=== PATIENT | female | born 2000 | race Caucasian/White ===

== ENCOUNTER 2024-03-01 22:44 | Emergency (ER) | payer OTHER, MEDICAID, SELFPAY ==
[2024-03-01 22:59] VITALS: BP 125/63; PULSE 83; RESP 16; TEMP 36.9; O2SAT 97; BMI 25.7
[2024-03-01 23:26] LABS: Add Manual Diff / Slide Review NO; Basophils Absolute Auto 0 /uL (0-100); Basophils Percent Auto 0.5 % (0-2); Eosinophils Absolute Auto 200 /uL (0-450); Eosinophils Percent Auto 2.2 % (2-4); Hematocrit 40.5 % (36-46); Hemoglobin 13.7 g/dL (12.0-16.0); Lymphocytes Absolute Auto 2700 /uL (1100-4500); Lymphocytes Percent Auto 32.4 % (25-40); Mean Corpuscular HGB Conc 33.8 % (30-36); Mean Corpuscular Hemoglobin 30.5 PG (26-34); Mean Corpuscular Volume 90.2 fL (80-100); Monocytes Absolute Auto 500 /uL (0-900); Monocytes Percent Auto 6.4 % (3-14); Neutrophils Absolute Auto 4900 /uL (1500-7000); Neutrophils Percent Auto 58.5 % (50-75); Platelet Count 328 X10^3/uL (150-400); Red Blood Cell Count 4.49 X10^6/uL (4.0-5.2); Red Cell Distribution Width 13.4 % (11.6-14.8); White Blood Cell Count 8.3 X10^3/uL (4.5-11.0)
[2024-03-01 23:37] LABS: Acetaminophen < 10 ug/mL (10-30); Alanine Aminotransferase 13 IU/L (<35); Albumin 4.7 g/dL (3.5-5.0); Albumin Globulin Ratio 1.7 (1.0-2.8); Alkaline Phosphatase 62 U/L (38-126); Aspartate Aminotransferase 20 IU/L (14-36); BUN Creatinine Ratio 19.3 (6-22); Bilirubin Total 0.4 mg/dL (0.2-1.3); Blood Urea Nitrogen 11 mg/dL (7-17); Calcium 8.8 mg/dL (8.4-10.2); Carbon Dioxide 27 mmol/L (22-32); Chloride 105 mmol/L (98-107); Estimated Glomerular Filt Rate > 60 mL/min (>60); Ethanol (ETOH) < 10 mg/dL; Globulin 2.8 g/dL (1.7-4.1); Glucose 106 mg/dL (70-100); HEMOLYSIS < 15 (0-50); Potassium 3.9 mmol/L (3.4-5.1); Salicylate < 1.0 mg/dL (<20); Sodium 141 mmol/L (137-145); Total Protein 7.5 g/dL (6.3-8.2)
[2024-03-01 23:57] LABS: Free T4, Direct Thyroxine 0.77 ng/dL (0.78-2.19)
[2024-03-02 00:05] LABS: UR Morphine/Opiate cutoff 300 Negative (Negative); Ur Creatinine Normal (Normal); Ur Specific Gravity Normal (Normal); Urine Amphetamines Negative (Negative); Urine Barbiturates Negative (Negative); Urine Benzodiazepines Negative (Negative); Urine Cocaine Negative (Negative); Urine MDMA Negative (Negative); Urine Methadone Negative (Negative); Urine Methamphetamines Negative (Negative); Urine Oxycodone Negative (Negative); Urine Phencyclidine Negative (Negative); Urine Tetrahydrocannabinol Positive (Negative); Urine Tricyclic Antidepressant Negative (Negative); Urine pH Normal (Normal)
[2024-03-02 00:11] LABS: Thyroid Stimulating Hormone 0.842 uIU/mL (0.47-4.68)
--- NOTE | 2024-03-02 01:07 | ED.PSYCH ---
HPI - Psych General Chief Complaint: Psychiatric Symptoms Stated Complaint: side effects of meds Time Seen by Provider: 03/01/24 23:48 Source: patient Mode of arrival: Ambulatory History of Present Illness HPI Narrative: 23-year-old female reports longstanding depression for many years, in the past had been on oral medications for depression prescribed by her primary care doctor Nhi at [facility], she stopped taking anti-depression medication months ago, can not recall the name of the medication. She does not believe she has any established diagnosis of bipolar disorder or any other psychiatric disorders. She has never been an inpatient for psychiatric issues before. She has had recent worsening of depression symptoms, with thoughts of hurting herself. No specific plan. She does admit to having a gun in the household, has not thought about hurting herself with a firearm. She denies ingestion of pills medications. She does not admit to any recent particular stressors with relationship, work, school. She would like to seek help. Related Data Home Medications Medication Instructions Recorded Confirmed OMEPRAZOLE 20 mg PO QDAY ##0 12/06/10 Allergies Allergy/AdvReac Type Severity Reaction Status Date / Time No Known Drug Allergies Allergy Verified 03/01/24 23:00 Review of Systems Review of Systems Narrative: see HPI Patient History Social History Smoking Status: Current every day smoker Smoking Status: Current every day smoker alcohol intake frequency: a few times a month Substance Use Type: marijuana Exam Narrative Exam Narrative: GENERAL: Well-developed patient, in mild distress. Clear speech, cooperative, good eye contact, no alcohol on breath HEAD: Atraumatic. Normocephalic. EYES: Pupils equal round and reactive. Extraocular motions intact. No scleral icterus. No injection or drainage. ENT: Nose without bleeding, purulent drainage. Throat without erythema, tonsillar hypertrophy or exudate. Airway patent. NECK: Trachea midline. Non tender CARDIOVASCULAR: Regular rate and rhythm without murmurs, gallops, or rubs. RESPIRATORY: Clear to auscultation. Breath sounds equal bilaterally. No wheezes, rales, or rhonchi. GASTROINTESTINAL: Abdomen soft, non-tender, nondistended. EXTREMITIES: No edema or joint tenderness. No injuries or punctures, no old scars upper extremities or lower extremities BACK: Nontender without deformity or crepitance. No flank tenderness. NEURO: AOx3. Grossly nonfocal neuro exam. SKIN: No rash or erythema of visible areas Initial Vital Signs Initial Vital Signs: Vital Signs Temperature 98.4 F 03/01/24 22:59 Pulse Rate 83 03/01/24 22:59 Respiratory Rate 16 03/01/24 22:59 Blood Pressure 125/63 03/01/24 22:59 Pulse Oximetry 97 03/01/24 22:59 Oxygen Delivery Method Room Air 03/01/24 22:59 Course Orders Ordered: Discontinued Medications Acetaminophen (Acetaminophen 325 Mg Tablet) 650 mg PO NOW ONE Stop: 03/02/24 07:02 Last Admin: 03/02/24 07:12 Dose: 650 mg Documented By: AB Vital Signs Vital signs: Vital Signs - 8 hr 03/02/24 08:30 03/02/24 13:40 Pulse Rate 75 107 H Respiratory Rate 16 12 Blood Pressure 107/61 110/66 Pulse Oximetry 100 99 Oxygen Delivery Method Room Air Room Air MDM - Psych Lab Data Attestation: I reviewed the patient's lab results. 03/01/24 23:17 03/01/24 23:17 Labs: Lab Results 03/01/24 03/01/24 03/01/24 Range/Units 01:40 23:17 23:20 WBC 8.3 (4.5-11.0) X10^3/uL RBC 4.49 (4.0-5.2) X10^6/uL Hgb 13.7 (12.0-16.0) g/dL Hct 40.5 (36-46) % MCV 90.2 (80-100) fL MCH 30.5 (26-34) PG MCHC 33.8 (30-36) % RDW 13.4 (11.6-14.8) % Plt Count 328 (150-400) X10^3/uL Neut % (Auto) 58.5 (50-75) % Lymph % (Auto) 32.4 (25-40) % [place] % (Auto) 6.4 (3-14) % Eos % (Auto) 2.2 (2-4) % Baso % (Auto) 0.5 (0-2) % Neut # (Auto) 4900 (3140-5616) /uL Lymph # (Auto) 2700 (2134-7593) /uL [place] # (Auto) 500 (0-900) /uL Eos # (Auto) 200 (0-450) /uL Baso # (Auto) 0 (0-100) /uL Sodium 141 (137-145) mmol/L Potassium 3.9 (3.4-5.1) mmol/L Chloride 105 (98-107) mmol/L Carbon Dioxide 27 (22-32) mmol/L BUN 11 (7-17) mg/dL Creatinine 0.57 (0.52-1.04) mg/dL Estimated GFR > 60 (>60) mL/min BUN/Creatinine Ratio 19.3 (6-22) Glucose 106 H (70-100) mg/dL Calcium 8.8 (8.4-10.2) mg/dL Total Bilirubin 0.4 (0.2-1.3) mg/dL AST 20 (14-36) IU/L ALT 13 (<35) IU/L Alkaline Phosphatase 62 (38-126) U/L Total Protein 7.5 (6.3-8.2) g/dL Albumin 4.7 (3.5-5.0) g/dL Globulin 2.8 (1.7-4.1) g/dL Albumin/Globulin Ratio 1.7 (1.0-2.8) TSH 0.842 (0.47-4.68) uIU/mL Free T4 0.77 L (0.78-2.19) ng/dL Urine Color Urine Appearance Ur Specific [place] (1.000-1.035) Urine Protein (Negative) Urine Glucose (UA) (Negative) g/dL Urine Ketones (NEGATIVE) Urine Occult Blood (Negative) Urine Nitrate (Negative) Urine Bilirubin (NEGATIVE) Urine Urobilinogen (0.2) E.U./dL Ur Leukocyte Esterase (NEGATIVE) Urine RBC (0-5/HPF) Urine WBC (0-5/HPF) Ur Squamous Epith Cells (0-5/HPF) Urine Bacteria (None) Ur Culture Indicated? Vol Urine Centrifuged Urine Test Negative (Negative) Salicylates < 1.0 (<20) mg/dL U Opiates 300ng/mL cut Negative (Negative) Ur Oxycodone Screen Negative (Negative) Urine Methadone Screen Negative (Negative) Acetaminophen < 10 (10-30) ug/mL Ur Barbiturates Screen Negative (Negative) U Tricyclic Antidepress Negative (Negative) Ur Phencyclidine Scrn Negative (Negative) Ur Amphetamines Screen Negative (Negative) U Methamphetamines Scrn Negative (Negative) Ur MDMA Scrn (Ecstasy) Negative (Negative) U Benzodiazepines Scrn Negative (Negative) Urine Cocaine Screen Negative (Negative) U Marijuana (THC) Screen Positive H (Negative) Urine pH Normal (Normal) Urine Specific [place] Normal (Normal) Ethyl Alcohol < 10 ( - 10) mg/dL Ur Creatinine Normal (Normal) SARS-CoV-2 (PCR) (Negative) 03/02/24 03/02/24 Range/Units 01:40 11:36 WBC (4.5-11.0) X10^3/uL RBC (4.0-5.2) X10^6/uL Hgb (12.0-16.0) g/dL Hct (36-46) % MCV (80-100) fL MCH (26-34) PG MCHC (30-36) % RDW (11.6-14.8) % Plt Count (150-400) X10^3/uL Neut % (Auto) (50-75) % Lymph % (Auto) (25-40) % [place] % (Auto) (3-14) % Eos % (Auto) (2-4) % Baso % (Auto) (0-2) % Neut # (Auto) (9617-6848) /uL Lymph # (Auto) (2182-9691) /uL [place] # (Auto) (0-900) /uL Eos # (Auto) (0-450) /uL Baso # (Auto) (0-100) /uL Sodium (137-145) mmol/L Potassium (3.4-5.1) mmol/L Chloride (98-107) mmol/L Carbon Dioxide (22-32) mmol/L BUN (7-17) mg/dL Creatinine (0.52-1.04) mg/dL Estimated GFR (>60) mL/min BUN/Creatinine Ratio (6-22) Glucose (70-100) mg/dL Calcium (8.4-10.2) mg/dL Total Bilirubin (0.2-1.3) mg/dL AST (14-36) IU/L ALT (<35) IU/L Alkaline Phosphatase (38-126) U/L Total Protein (6.3-8.2) g/dL Albumin (3.5-5.0) g/dL Globulin (1.7-4.1) g/dL Albumin/Globulin Ratio (1.0-2.8) TSH (0.47-4.68) uIU/mL Free T4 (0.78-2.19) ng/dL Urine Color Yellow Urine Appearance Clear Ur Specific [place] 1.015 (1.000-1.035) Urine Protein Negative (Negative) Urine Glucose (UA) Negative (Negative) g/dL Urine Ketones Negative (NEGATIVE) Urine Occult Blood Negative (Negative) Urine Nitrate Positive H (Negative) Urine Bilirubin Negative (NEGATIVE) Urine Urobilinogen 1.0 (0.2) E.U./dL Ur Leukocyte Esterase Negative (NEGATIVE) Urine RBC None seen (0-5/HPF) Urine WBC 1-5/hpf (0-5/HPF) Ur Squamous Epith Cells 5-10 /hpf H (0-5/HPF) Urine Bacteria Many (>30) H (None) Ur Culture Indicated? Specimen cultured Vol Urine Centrifuged 10ml (spun) Urine Test (Negative) Salicylates (<20) mg/dL U Opiates 300ng/mL cut (Negative) Ur Oxycodone Screen (Negative) Urine Methadone Screen (Negative) Acetaminophen (10-30) ug/mL Ur Barbiturates Screen (Negative) U Tricyclic Antidepress (Negative) Ur Phencyclidine Scrn (Negative) Ur Amphetamines Screen (Negative) U Methamphetamines Scrn (Negative) Ur MDMA Scrn (Ecstasy) (Negative) U Benzodiazepines Scrn (Negative) Urine Cocaine Screen (Negative) U Marijuana (THC) Screen (Negative) Urine pH 8.0 (Normal) Urine Specific [place] (Normal) Ethyl Alcohol ( - 10) mg/dL Ur Creatinine (Normal) SARS-CoV-2 (PCR) Negative (Negative) Point of Care Testing Test Results Negative Urine Dip Bedside Urine Glucose Negative Bedside Urine Bilirubin - Negative Bedside Urine Ketone - Negative Urine Specific [place] 1.015 Bedside Urine Occult Blood - Negative Bedside Urine pH 7.5 Bedside Urine Protein - Negative Bedside Urine Urobilinogen - Negative Bedside Urine Nitrite + Positive Bedside Urine Leukocytes - Negative Esterase MDM Narrative Medical decision making narrative: 23-year-old female with longstanding depression, off medication for many months, recent increase depression symptoms, suicidal ideation without specific plan, no homicidal ideation. Afebrile, sirs screen negative. No obvious injury on exam. Does not seem altered or intoxicated. Urine test negative. Other screening studies unremarkable. support services rep consult when available later this morning. Medically cleared. [id number] [id number] social worker clinical consult for disposition plan, signed out to oncoming ED shift physician Dr. Dominguez Discharge Plan Departure Patient Disposition: Xfer Psychiatric Hosp Clinical Impression: Suicidal ideation, Depression Prescriptions: No Action OMEPRAZOLE 20 mg PO QDAY Qty: 0
[2024-03-02 02:29] LABS: Appearance Urine UA CLEAR; Bilirubin Urine UA NEGATIVE (NEGATIVE); Color Urine UA YELLOW; Glucose Urine UA NEGATIVE (Negative); Ketones Urine UA NEGATIVE (NEGATIVE); Leukocyte Esterase Urine UA NEGATIVE (NEGATIVE); Nitrite Urine UA POSITIVE (Negative); Occult Blood Urine UA NEGATIVE (Negative); Protein Urine UA NEGATIVE (Negative); Specific Gravity Urine UA 1.015 (1.000-1.035)
[2024-03-02 02:31] LABS: RBC Urine None Seen (0-5/HPF); Urine Volume 10mL (spun)
[2024-03-02 02:32] LABS: Bacteria Urine Many (>30); Culture Indicated Urine Specimen Cultured; Squamous Epithelial Cell Urine 5-10 /HPF (0-5/HPF); WBC Urine 1-5/HPF (0-5/HPF)
[2024-03-02] MEDS: ACETAMINOPHEN 325 MG TABLET 650 MG PO (07:12)
[2024-03-02 08:30] VITALS: BP 107/61; PULSE 75; RESP 16; O2SAT 100
--- NOTE | 2024-03-02 11:25 | CM.SWNOTE ---
ED NEUROPSYCHOLOGIST Assessment Note: NEUROPSYCHOLOGIST - Electrical Service Technician Assessment NEUROPSYCHOLOGIST - Electrical Service Technician Assessment Start: 03/02/24 11:00 Freq: Status: Active Protocol: Document 03/02/24 11:00 MW (Rec: 03/02/24 11:20 MW [id number]) NEUROPSYCHOLOGIST/Electrical Service Technician Assessment Time Spent with Patient Start date 03/02/24 Visit Start Time 10:38 End date 03/02/24 Visit End Time 11:01 Total time Care Management spent on 23 minutes patient visit-in minutes Mental Health Screening Include Onset, Duration, Intensity Presenting Problem Patient presents to ED today for psych eval and medical clearance for inpatient treatment, voluntarily. Patient reports passive suicidal ideation and severe depression. Patient scored a 21 on the PHQ -9 and a 14 on the ERASTO-7, indicating severe depression and moderate anxiety. Precipitating Event(s) Patient explains she stopped taking her medications ( lexapro and buspirone) approximately two weeks ago at the recommendation of her PCP due to increased suicidal ideation. Patient is not medicated at the moment. Patient Strengths Patient is exhibiting good insight and is seeking assistance with her medications for depression. Current Behavioral Health Provider(s) PCP: LARRY Coleman Include Facility, Provider, Ph. # Patient does not have a MH provider established at this time. Psych. Hx Mental Health and Chemical Patient has a previous medical Dependency history of depression. Patient expressed suspicions that she has undiagnosed ADHD and Autism Spectrum Disorder. 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 Patient reports she has been clean from these substances for a few months. Patient utilizes THC occasionally. Patient's UTox screening was positive for THC only. Family Hx of Behavioral Abuse Patient explains her father and brother had severe depression, her grandmother has bipolar disorder and her mother had undiagnosed ADHD. Patient explains she has many family members or people in her neighborhood who use substances which could be triggering to her. Psychiatric Hospitalizations (date(s)/ Patient denies any psychiatric location) hospitalizations. Psychosocial information & Support Patient is a 23yo female, Systems resident of [place] with her grandparents. Patient explains she has good support in her grandparents but there are other people around her house that utilize substances which could be triggering for her. School/Work Patient does not work or go to school. Legal Concerns Legal Matters - Outstanding Issues None reported. Mental Status Orientation (Person/Place/Time) AOx3 Stated Mood I feel really stupid. I feel like my brain is not working right now, or at all recently. I feel hopeless. Affect (Congruent with Mood?) Tearful, pleasant, congruent with mood. Thought Content - Specify/Describe Visual hallucinations: Patient Obsessions, Delusions, Hallucinations endorses seeing skulls on the wall predominantly when she was using methamphetamines . Patient explains she sees pictures in patterns currently but nothing insidious or scary. Auditory hallucinations: None reported. Thought Processes (Eflftne-Uuhsrrxb-Iwon Logical, coherent Mdtwwiua-Npxfbyjj-Uwmclynnxu- Albiemyhdyyeot-Kiuuihq-Mrujklygspzt- Thought Blocking) Speech (Zulyei-Bign-Ygkvktz-Rapid-Soft- Soft, normal Loud-Pressured) Motor (Uwylzc-Plsbiujsr-Qfgw-Other) Normal Insight (Bpqn-Kifh-Marb/Limited) Good Judgement (Pzyv-Vxmu-Fqns/Limited) Fair/limited Impulse Control (Adequate-Impaired) Adequate Memory (Lafisncca-Tjgfvi-Qgreeh, Intact Impaired-Intact) Concentration (Intact-Impaired) Intact Attention (Intact-Impaired) Intact Behavior (Appropriate-Inappropriate) Appropriate Additional Comment Patient is calm, cooperative and communicative during assessment and time spent in the ED. Risk Assessment Suicidal Ideation (Plan) Yes Homicidal Ideation (Plan) No Comment Patient denies HI but reports feeling very angry towards people who have been rude to her (a friend) and having inclinations to hit them. Patient confirmed that being aggressive is against her nature and she would not follow through with assaulting anyone. Patient endorses passive SI, I have intrusive thoughts and I run through scenarios sometimes. I try to stop the thoughts because I don't want to do that. Patient explains she has no intent of ending her life and no means. Patient reports her grandmother owns a gun but she does not know where it is stored in the house and would not utilize a firearm to end her life. Patient expresses her passive SI comes from being overwhelmed and hopeless. Intervention Intervention NEUROPSYCHOLOGIST meets with patient. Patient discusses the events that led up to her presentation today; patient reports she stopped taking her medications for depression about a couple of weeks ago due to increased suicide ideations. Patient expresses she does not wish to end her life but is feeling severe depression and hopelessness. NEUROPSYCHOLOGIST deployed PHQ-9 and ERASTO-7, patient scored 21 and 14, respectively. These scores indicating severe depression and moderate anxiety. NEUROPSYCHOLOGIST and patient discuss next steps. Patient explains he is wanting to receive inpatient behavioral health hospitalization at this time. Patient has no history of psych inpatient treatment and does not have a preference for facilities. At this time, it is the opinion of this NEUROPSYCHOLOGIST that patient would benefit from inpatient psychiatric hospitalization for SI and severe depression. NEUROPSYCHOLOGIST informs ED provider, Dr. Dominguez who indicates agreement . NEUROPSYCHOLOGIST informs AKOSUA Kendrick. Plan RA Plan Once patient is medically clear, ED staff will attempt to find inpatient placement for patient. DANIEL Al
[2024-03-02 11:45] LABS: Pregnancy Test Urine Negative (Negative)
[2024-03-02 12:00] LABS: COVID19 -Nasal RAPID Negative (Negative)
[2024-03-02 13:40] VITALS: BP 110/66; PULSE 107; RESP 12; O2SAT 99
--- NOTE | 2024-03-02 13:41 | CM.SWNOTE ---
ED SALESPERSON RECREATIONAL VEHICLES Note: ED SALESPERSON RECREATIONAL VEHICLES initiated search for inpatient bed placement. ED SALESPERSON RECREATIONAL VEHICLES called [facility], it was reported that there are some beds available for placement. Clinical packet sent for review. ED SALESPERSON RECREATIONAL VEHICLES called [facility], it was reported that there are some beds available for placement. Clinical packet sent for review. ED SALESPERSON RECREATIONAL VEHICLES called [facility], it was reported that there are some beds available for placement. Clinical packet sent for review. ED SALESPERSON RECREATIONAL VEHICLES spoke with Henrry at [facility]. It was reported that pt was accepted. Accepting Provider: LARRY Roach RN Report#[phone], request for [address] ED SALESPERSON RECREATIONAL VEHICLES scheduled BLS transport with [facility] at 1350 with an arrival at 1500. ED SALESPERSON RECREATIONAL VEHICLES notified ED Provider, RN, sitter and patient. All verbalized agreement with plan. Plan: Patient to transfer to [facility] for psych inpatient and medication management assistance, transport at 1350 via [facility]. DANIEL Al
--- NOTE | 2024-03-05 07:22 | PC.NURSE ---
Paolo Shields contacted spoke to Deidra. Informed of ESBL-Ecoli results from urine culture. Per Dr Dominguez no treatment at this time if patient is asymptomatic. Paolo Shields will follow up on plan of care for patient.
== END 2024-03-02 14:21 ==
PROVIDERS: Emergency Medicine; Emergency Provider Emergency Medicine
DX: R45.851 Suicidal ideations (principal); F32.A Depression, unspecified; Z11.52 Encounter for screening for COVID-19
CPT/HCPCS: 36415; 80053; 80305; 80320; 80329; 81001; 81003; 81025; 84439; 84443; 85025; 87077; 87086; 87635; 99284; G0480